=== PATIENT | female | born 1990 | race American Indian/Alaskan Native ===

== ENCOUNTER 2017-05-07 14:17 | Emergency (ER) | payer MEDICAID, SELFPAY ==
[2017-05-07 14:39] VITALS: RESP 18
[2017-05-07 15:42] LABS: RBC URINE 4 /hpf (0-3); URINE BACTERIA RARE (<OCC); URINE BILIRUBIN NEGATIVE (NEGATIVE); URINE BLOOD NEGATIVE (NEGATIVE); URINE COLOR Yellow (YELLOW); URINE GLUCOSE (UA) NORMAL (Normal); URINE KETONE NEGATIVE (NEGATIVE); URINE LEUKOCYTE ESTERASE NEG Leu/uL (Negative); URINE PROTEIN NEGATIVE (NEGATIVE); URINE UROBILINOGEN NORMAL mg/dL (0.2-1.0); WBC URINE 1 /hpf (0-5)
[2017-05-07 15:53] LABS: BASO % 0.3 % (0.0-2.0); EOS # 0.2 K/uL (0.0-0.7); EOS % 3.1 % (0.0-4.0); LYMPH # 1.7 K/uL (1.0-4.3); LYMPH % 26.3 % (20.0-40.0); MEAN CELL VOLUME 81.6 fL (81.0-99.0); MEAN CORPUSCULAR HEMOGLOBIN 26.9 pg (27.0-31.0); MEAN CORPUSCULAR HGB CONC 32.9 g/dL (33.0-37.0); MEAN PLATELET VOLUME 7.4 fL (7.2-11.7); MONO # 0.6 K/uL (0.0-0.8); NRBC % 0.1 % (0.0-2.0); RED CELL DISTRIBUTION WIDTH 13.8 % (11.5-14.5); WHITE BLOOD COUNT 6.5 K/uL (4.8-10.8)
[2017-05-07 16:03] LABS: CHLORIDE 101 mmol/L (98-107); SODIUM 140 mmol/L (132-148)
[2017-05-07 16:04] LABS: POTASSIUM 3.5 mmol/L (3.6-5.2)
[2017-05-07 16:06] LABS: ALB/GLOB RATIO 1.1 (1.0-2.1); ALKALINE PHOSPHATASE 45 U/L (38-126); ALT/SGPT 30 U/L (9-52); AST/SGOT 24 U/L (14-36); BILIRUBIN,TOTAL 0.3 mg/dL (0.2-1.3); BLOOD UREA NITROGEN 11 mg/dL (7-17); CALCIUM 9.2 mg/dl (8.6-10.4); CARBON DIOXIDE 25 mmol/L (22-30); GFR AFRICAN-AMERICAN > 60; GLUCOSE,RANDOM 63 mg/dL (65-105); TOTAL PROTEIN 7.1 g/dL (6.3-8.3)
--- NOTE | 2017-05-07 17:01 | US ---
Indication: Pain Comparison: None available. Technique: Real-time transabdominal pelvic ultrasound was performed. In addition a transvaginal pelvic ultrasound was necessary to better depict pelvic anatomy. Findings: The uterus measures approximately 11.1 x 7.0 x 8.0 cm. Anteverted. Cervix length measures approximately 3.5 cm. There is a single intrauterine fetus present. 4 mm yolk sac. The gestational sac measures 4.4 cm and is compatible with a gestational age of 9 weeks 6 days. The crown-rump length measures 3.5 cm and is compatible with a gestational age of 10 weeks 2 days. There is heart motion which measured 161.1 BPM. The right ovary measures 3.0 x 2.8 x 2.7 cm. The left ovary measures 3.2 x 2.4 x 3.4 cm and contains 1.7 cm probable cyst. Blood flow was demonstrated to both ovaries. Impression: Live single intrauterine with estimated gestational age 9 weeks 6 days by gestational sac calculation and 10 weeks 2 days by crown-rump length calculation. heart rate 161.1 bpm. Advise an anomaly screen at 16-18 weeks gestational age Probable 1.7 cm left ovarian cyst.
--- NOTE | 2017-05-07 17:11 | C.PDOC ---
History Of Present Illness 26 y/o female presents to ED with complaints of abdominal discomfort for a "few weeks". Patient states pain is worse when laying on it. Denies fever, n/v, urinary symptoms , diarrhea or any other complaints at this time. Patient LMP was 1 month ago. Time Seen by Provider: 05/07/17 15:13 Chief Complaint (Nursing): Abdominal Pain History Per: Patient History/Exam Limitations: no limitations Onset/Duration Of Symptoms: Days Current Symptoms Are (Timing): Still Present Location Of Pain/Discomfort: Epigastric Quality Of Discomfort: "Pain" Past Medical History Reviewed: Historical Data, Nursing Documentation, Vital Signs Vital Signs: Last Vital Signs Temp 97.4 F L 05/07/17 17:18 Pulse 72 05/07/17 17:18 Resp 18 05/07/17 17:18 BP 135/78 05/07/17 17:18 Pulse Ox 99 05/07/17 17:51 Surgical History: No Surg Hx - [facility] Procedures RADICAL EXCIS SKIN LES (01/07/13) Family History: States: No Known Family Hx - Social History Hx Tobacco Use: Yes Hx Alcohol Use: Yes Hx Substance Use: No - Immunization History Hx Tetanus Toxoid Vaccination: No Hx Influenza Vaccination: No Hx Pneumococcal Vaccination: No Review Of Systems Except As Marked, All Systems Reviewed And Found Negative. Constitutional: Negative for: Fever, Chills Gastrointestinal: Positive for: Abdominal Pain. Negative for: Nausea, Vomiting , Diarrhea Genitourinary: Negative for: Dysuria, Hematuria, Vaginal Discharge, Vaginal Bleeding Skin: Negative for: Rash Physical Exam - Physical Exam Appears: Non-toxic, No Acute Distress Skin: Warm, Dry, No Rash Head: Atraumatic, Normacephalic Eye(s): bilateral: Normal Inspection, EOMI Oral Mucosa: Moist Neck: Normal ROM, Supple Chest: Symmetrical Cardiovascular: Rhythm Regular, No Murmur Respiratory: Normal Breath Sounds, No Rales, No Rhonchi, No Wheezing Gastrointestinal/Abdominal: Soft, No Tenderness, No Guarding, No Rebound Back: No CVA Tenderness, No Vertebral Tenderness Neurological/Psych: Oriented x3 ED Course And Treatment - Laboratory Results Result Diagrams: 05/07/17 15:48 05/07/17 15:48 O2 Sat by Pulse Oximetry: 99 (RA) Pulse Ox Interpretation: Normal - CT Scan/US Pelvis US Other Rad Studies (CT/US): Read By Radiologist, Radiology Report Reviewed CT/US Interpretation: Accession No. : [id number]. Patient Name / ID : HARSH HWANG / [id number]. Exam Date : 05/07/2017 16:20:37 ( Approved ). Study Comment : Sex / Age : F / 26Y. Creator : Marcelle Summers MD. Dictator : Director Digital Analytics : [employer] Attendant : Marcelle Summers MD. Approver2 : Report Date : 05/07/2017 17:00:09. My Comment : . Indication: Pain. Comparison: None available. Technique: Real-time transabdominal pelvic ultrasound was performed. In addition a transvaginal pelvic ultrasound was necessary to better depict pelvic anatomy. Findings: The uterus measures approximately 11.1 x 7.0 x 8.0 cm. Anteverted. Cervix length measures approximately 3.5 cm. There is a single intrauterine fetus present. 4 mm yolk sac. The gestational sac measures 4.4 cm and is compatible with a gestational age of 9 weeks 6 days. The crown-rump length measures 3.5 cm and is compatible with a gestational age of 10 weeks 2 days. There is heart motion which measured 161.1 BPM. The right ovary measures 3.0 x 2.8 x 2.7 cm. The left ovary measures 3.2 x 2.4 x 3.4 cm and contains 1.7 cm probable cyst. Blood flow was demonstrated to both ovaries. Impression: Live single intrauterine with estimated gestational age 9 weeks 6 days by gestational sac calculation and 10 weeks 2 days by crown-rump length calculation. heart rate 161.1 bpm. Advise an anomaly screen at 16-18 weeks gestational age. Probable 1.7 cm left ovarian cyst. Progress Note: No pain at the moment. Does not want pain medication. Pt was instructed to follow up with OB in 1-2 days. Return to ER if symptoms persist or worsen. Disposition - Disposition Referrals: [facility] [Outside] Disposition: HOME/ ROUTINE Disposition Time: 17:10 Condition: STABLE Additional Instructions: Follow up with primary medical doctor in 1-3 days without fail for further evaluation. Take medications as prescribed. Return to the emergency department at any time if symptoms persist or worsen. 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 - Scribe Statement The provider has reviewed the documentation as recorded by the Deyviibjosé Savage All medical record entries made by the Deyviibjosé were at my direction and personally dictated by me. I have reviewed the chart and agree that the record accurately reflects my personal performance of the history, physical exam, medical decision making, and the department course for this patient. I have also personally directed, reviewed, and agree with the discharge instructions and disposition.
[2017-05-07 17:19] VITALS: BP 135/78; PULSE 72; TEMP 97.4
[2017-05-07 17:48] VITALS: O2SAT 99
== END 2017-05-07 17:21 | disposition home or self-care (01) ==
LOC: C.ER 14:17
DX: O26.891 Other specified pregnancy related conditions, first trimester (principal); Z3A.09 9 weeks gestation of pregnancy

== ENCOUNTER 2017-09-09 12:19 | Emergency (ER) | payer MEDICAID ==
[2017-09-09 13:27] VITALS: BP 152/91; PULSE 61; RESP 20; TEMP 98.6; O2SAT 100
[2017-09-09] MEDS ORDERED: Tetracaine 0.5% Ophth (OR ONLY) OD STA (14:23)
[2017-09-09] MEDS ORDERED: Fluorescein 1 mg Ophthalmic Strip OD ONE (14:23)
[2017-09-09] MEDS ORDERED: Fluorescein 1 mg Ophthalmic Strip ONE (14:43)
[2017-09-09] MEDS ORDERED: Tetracaine 0.5% Ophth (OR ONLY) ONE (14:43)
[2017-09-09] MEDS ORDERED: Naproxen 550 mg Tab PO STA (14:49)
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
== END 2017-09-09 15:11 | disposition home or self-care (01) ==
LOC: C.ER 12:19
DX: H16.001 Unspecified corneal ulcer, right eye (principal); Z87.891 Personal history of nicotine dependence